=== PATIENT | female | born 1965 | race Caucasian/White ===

== ENCOUNTER 2017-08-21 21:06 | Emergency (ER) | payer MEDICAID ==
[~2017-08-21] VITALS: Ht 180.3 cm; Wt 109.0 kg
[~2017-08-21 21:06] MED LIST: ALBU18HF2 INH; ALPR-624 PO; AMLO2.5T2 PO; ATOR40TA71 PO; BACL20TA84 PO; FENO134C PO; HYDR12.5 PO; OXYC5CAP19 PO; ZETIA PO; ZOL50T PO
[2017-08-21] MEDS ORDERED: levoFLOXACIN 500mg tablet PO ONE (21:35)
[2017-08-21] MEDS ORDERED: LEVO500T2 PO (21:38)
[2017-08-21] MEDS ORDERED: TETanus/Pertussis (Acell)/Diphther VAC/PF (Tdap-Adult) 0.5ml syringe IM ONE (21:40)
[2017-08-21 22:31] VITALS: BP 138/108
== END 2017-08-21 22:10 | disposition home or self-care (01) ==
LOC: ER 21:07
DX: S91.331A Puncture wound without foreign body, right foot, initial encounter (principal); Z72.0 Tobacco use; E78.00 Pure hypercholesterolemia, unspecified; I10 Essential (primary) hypertension; G89.29 Other chronic pain; J45.909 Unspecified asthma, uncomplicated; Z90.710 Acquired absence of both cervix and uterus; Z98.890 Other specified postprocedural states; F17.210 Nicotine dependence, cigarettes, uncomplicated; Z88.0 Allergy status to penicillin; Z88.5 Allergy status to narcotic agent; Z88.2 Allergy status to sulfonamides; Z88.6 Allergy status to analgesic agent; Z88.1 Allergy status to other antibiotic agents; Z79.899 Other long term (current) drug therapy; Z56.0 Unemployment, unspecified; W45.0XXA Nail entering through skin, initial encounter; Y93.89 Activity, other specified; Y92.89 Other specified places as the place of occurrence of the external cause; Y99.8 Other external cause status
CPT/HCPCS: 90471; 90715; 99283

== ENCOUNTER 2017-09-06 00:34 | Emergency (ER) | payer MEDICAID ==
[~2017-09-06] VITALS: Ht 177.8 cm; Wt 110.7 kg
[~2017-09-06 00:34] MED LIST changes: +LEVO500T2 PO
[2017-09-06 01:54] VITALS: BP 149/103
== END 2017-09-06 01:55 | disposition home or self-care (01) ==
LOC: ER 00:34
DX: G89.29 Other chronic pain (principal); M25.552 Pain in left hip; M25.551 Pain in right hip; E78.00 Pure hypercholesterolemia, unspecified; I10 Essential (primary) hypertension; J45.909 Unspecified asthma, uncomplicated; M19.90 Unspecified osteoarthritis, unspecified site; F17.200 Nicotine dependence, unspecified, uncomplicated; Z56.0 Unemployment, unspecified; Z87.442 Personal history of urinary calculi; Z90.710 Acquired absence of both cervix and uterus; Z98.890 Other specified postprocedural states; Z88.0 Allergy status to penicillin; Z88.2 Allergy status to sulfonamides; Z88.8 Allergy status to other drugs, medicaments and biological substances; Z79.899 Other long term (current) drug therapy
CPT/HCPCS: 99281

== ENCOUNTER 2018-01-12 08:07 | Emergency (ER) | payer MEDICAID ==
[~2018-01-12] VITALS: Ht 180.3 cm; Wt 115.9 kg
[~2018-01-12 08:07] MED LIST changes: -LEVO500T2 PO
[2018-01-12 08:12] VITALS: BP 173/106
[2018-01-12] MEDS ORDERED: normal saline 1000ML IV soln IVB STA (08:23)
[2018-01-12] MEDS ORDERED: diphenhydrAMINE 50 mg/ml inj IV ONE (08:25)
[2018-01-12] MEDS ORDERED: methylPREDNISolone sod succ 125mg/2ml vial IV ONE (08:25)
[2018-01-12] MEDS ORDERED: triamcinolone acetonide 40mg/ml inj IM ONE (08:25)
[2018-01-12] MEDS ORDERED: EPIN0.3P8 IM (10:06)
== END 2018-01-12 10:17 | disposition home or self-care (01) ==
LOC: ER 08:08
DX: T78.40XA Allergy, unspecified, initial encounter (principal); I10 Essential (primary) hypertension; E78.00 Pure hypercholesterolemia, unspecified; J45.909 Unspecified asthma, uncomplicated; M19.90 Unspecified osteoarthritis, unspecified site; G89.29 Other chronic pain; M54.9 Dorsalgia, unspecified; Z90.710 Acquired absence of both cervix and uterus; Z56.0 Unemployment, unspecified; Z90.89 Acquired absence of other organs; Z88.6 Allergy status to analgesic agent; Z88.1 Allergy status to other antibiotic agents; Z88.2 Allergy status to sulfonamides; Z88.8 Allergy status to other drugs, medicaments and biological substances
CPT/HCPCS: 93005; 96372; 96374; 96375; 99284; J1200; J2930; J3301; J7030

== ENCOUNTER 2018-03-21 21:19 | Emergency (ER) | payer MEDICAID ==
[~2018-03-21] VITALS: Ht 177.8 cm; Wt 113.6 kg
[~2018-03-21 21:19] MED LIST changes: +EPIN0.3P8 IM
[2018-03-21 21:23] VITALS: BP 174/100
[2018-03-21] MEDS ORDERED: HYDR-4383 PO (22:05)
== END 2018-03-21 22:11 | disposition home or self-care (01) ==
LOC: ER 21:20
DX: S93.601A Unspecified sprain of right foot, initial encounter (principal); E78.00 Pure hypercholesterolemia, unspecified; I10 Essential (primary) hypertension; J45.909 Unspecified asthma, uncomplicated; G89.29 Other chronic pain; M19.90 Unspecified osteoarthritis, unspecified site; Z90.710 Acquired absence of both cervix and uterus; Z88.0 Allergy status to penicillin; Z88.2 Allergy status to sulfonamides; Z88.1 Allergy status to other antibiotic agents; Z88.6 Allergy status to analgesic agent; Z88.5 Allergy status to narcotic agent; Z88.8 Allergy status to other drugs, medicaments and biological substances; Z79.899 Other long term (current) drug therapy; Z56.0 Unemployment, unspecified; X50.1XXA Overexertion from prolonged static or awkward postures, initial encounter; Y93.89 Activity, other specified; Y92.89 Other specified places as the place of occurrence of the external cause; Y99.8 Other external cause status
CPT/HCPCS: 29515; 73630; 99284

== ENCOUNTER 2018-03-27 17:52 | Emergency (ER) | payer MEDICAID ==
[~2018-03-27] VITALS: Ht 177.8 cm; Wt 109.0 kg
[~2018-03-27 17:52] MED LIST changes: +HYDR-4383 PO
[2018-03-27 18:19] VITALS: BP 140/99
== END 2018-03-27 23:11 | disposition left against medical advice (07) ==
LOC: ER 17:53
DX: J00 Acute nasopharyngitis [common cold] (principal); R05 Cough; R09.81 Nasal congestion; Z53.21 Procedure and treatment not carried out due to patient leaving prior to being seen by health care provider

== ENCOUNTER 2018-12-07 20:18 | Emergency (ER) | payer MEDICAID ==
[~2018-12-07] VITALS: Ht 180.3 cm; Wt 113.0 kg
[~2018-12-07 20:18] MED LIST changes: +SERT-153 PO; -ZOL50T PO
[2018-12-07 21:23] LABS: BASOPHILS # (AUTO) 0.1 X10'3 (0-0.2); EOSINOPHILS # (AUTO) 0.2 X10'3 (0-0.9); EOSINOPHILS % (AUTO) 2.3 % (0-6); HEMOGLOBIN 13.6 g/dl (12.0-16.0); LYMPHOCYTES # (AUTO) 2.5 X10'3 (1.1-4.8); LYMPHOCYTES % (AUTO) 33.5 % (21-51); MEAN CORPUSCULAR HEMOGLOBIN 29.5 PG (27.0-31.0); MEAN CORPUSCULAR HGB CONC 33.3 g/dL (33.0-36.5); MEAN CORPUSCULAR VOLUME 88.8 FL (78-98); MEAN PLATELET VOLUME 9.2 FL (7.4-10.4); MONOCYTES # (AUTO) 0.7 X10'3 (0-0.9); MONOCYTES % (AUTO) 9.2 % (2-12); NEUTROPHILS # (AUTO) 4.1 X10'3 (1.8-7.7); PLATELET COUNT 242 X10'3 (140-440); RED BLOOD COUNT 4.62 X10'6 (4.20-5.60); RED CELL DISTRIBUTION WIDTH 13.8 % (11.5-14.5); WHITE BLOOD COUNT 7.5 X10'3 (4.5-11.0)
[2018-12-07 21:29] LABS: ALANINE AMINOTRANSFERASE 29 U/L (12-78); ALBUMIN 3.5 G/DL (3.4-5.0); ALBUMIN/GLOBULIN RATIO 0.9 (1.1-1.5); ALKALINE PHOSPHATASE 111 IU/L (46-116); ANION GAP 8 (8-16); ASPARTATE AMINO TRANSFERASE 16 U/L (10-37); BILIRUBIN,TOTAL 0.2 MG/DL (0.1-1.0); BLOOD UREA NITROGEN 17 MG/DL (7-18); BUN/CREATININE RATIO 23.9 (6.6-38.0); CALCIUM 8.9 MG/DL (8.5-10.1); CHLORIDE 106 MMOL/L (99-107); CREATININE 0.71 MG/DL (0.40-0.90); GLUCOSE 108 MG/DL (70-104); POTASSIUM 3.8 MMOL/L (3.5-5.1); SODIUM 144 MMOL/L (135-145); TOTAL CARBON DIOXIDE 29.7 MMOL/L (24-32); TOTAL PROTEIN 7.3 G/DL (6.4-8.2); eGFR 87 ML/MIN
[2018-12-07 21:34] LABS: PARTIAL THROMBOPLASTIN TIME 34 SECONDS (22-32)
[2018-12-07 22:41] VITALS: BP 145/89
== END 2018-12-07 22:43 | disposition home or self-care (01) ==
LOC: ER 20:19
DX: I87.8 Other specified disorders of veins (principal); R20.2 Paresthesia of skin; E78.00 Pure hypercholesterolemia, unspecified; I10 Essential (primary) hypertension; J45.909 Unspecified asthma, uncomplicated; G47.30 Sleep apnea, unspecified; M19.90 Unspecified osteoarthritis, unspecified site; G89.29 Other chronic pain; M79.7 Fibromyalgia; F41.9 Anxiety disorder, unspecified; F32.9 Major depressive disorder, single episode, unspecified; G35 Multiple sclerosis; Z90.710 Acquired absence of both cervix and uterus; Z98.890 Other specified postprocedural states; Z90.721 Acquired absence of ovaries, unilateral; Z56.0 Unemployment, unspecified; Z87.442 Personal history of urinary calculi; Z88.0 Allergy status to penicillin; Z88.2 Allergy status to sulfonamides; Z88.1 Allergy status to other antibiotic agents; Z88.5 Allergy status to narcotic agent; Z88.8 Allergy status to other drugs, medicaments and biological substances; Z79.899 Other long term (current) drug therapy
CPT/HCPCS: 36415; 80053; 83880; 85025; 85610; 85730; 99283

== ENCOUNTER 2019-11-23 11:59 | Emergency (ER) | payer MEDICAID ==
[~2019-11-23] VITALS: Ht 177.8 cm; Wt 112.6 kg
[2019-11-23] MEDS ORDERED: dexamethasone sod phosphate 10mg/ml inj PO STA (14:31)
[2019-11-23] MEDS ORDERED: CEPH500C5 PO (14:38)
[2019-11-23 14:51] VITALS: BP 141/97
== END 2019-11-23 14:45 | disposition home or self-care (01) ==
LOC: ER 11:59
DX: J02.9 Acute pharyngitis, unspecified (principal); G35 Multiple sclerosis; E78.00 Pure hypercholesterolemia, unspecified; I10 Essential (primary) hypertension; J45.909 Unspecified asthma, uncomplicated; G47.30 Sleep apnea, unspecified; M19.90 Unspecified osteoarthritis, unspecified site; G89.29 Other chronic pain; F41.9 Anxiety disorder, unspecified; F32.9 Major depressive disorder, single episode, unspecified; F17.210 Nicotine dependence, cigarettes, uncomplicated; Z90.710 Acquired absence of both cervix and uterus; Z98.890 Other specified postprocedural states; Z56.0 Unemployment, unspecified; Z88.0 Allergy status to penicillin; Z88.2 Allergy status to sulfonamides; Z88.1 Allergy status to other antibiotic agents; Z88.5 Allergy status to narcotic agent; Z88.8 Allergy status to other drugs, medicaments and biological substances; Z79.2 Long term (current) use of antibiotics; Z79.899 Other long term (current) drug therapy
CPT/HCPCS: 99283; J1100

== ENCOUNTER 2020-09-11 21:22 | Emergency (ER) | payer MEDICAID ==
[~2020-09-11] VITALS: Ht 177.8 cm; Wt 113.6 kg
[~2020-09-11 21:22] MED LIST changes: +CEPH-585 PO
[2020-09-11 21:44] VITALS: BP 170/99
[2020-09-11] MEDS ORDERED: erythromycin ophthalmic ointment 1gm tube LEFTEYE ONE (22:35)
[2020-09-11] MEDS ORDERED: proparacaine 0.5% ophthalmic drops 15ml EACHEYE ONE (22:35)
[2020-09-11] MEDS ORDERED: ERYT1OIN6 RIGHTEYE (23:01)
== END 2020-09-11 23:34 | disposition home or self-care (01) ==
LOC: ER 21:23
DX: H57.11 Ocular pain, right eye (principal); E78.00 Pure hypercholesterolemia, unspecified; I10 Essential (primary) hypertension; J45.909 Unspecified asthma, uncomplicated; G47.30 Sleep apnea, unspecified; M19.90 Unspecified osteoarthritis, unspecified site; G89.29 Other chronic pain; M79.7 Fibromyalgia; F41.9 Anxiety disorder, unspecified; F32.9 Major depressive disorder, single episode, unspecified; Z90.710 Acquired absence of both cervix and uterus; Z98.890 Other specified postprocedural states; Z87.442 Personal history of urinary calculi; Z56.0 Unemployment, unspecified; Z88.5 Allergy status to narcotic agent; Z88.8 Allergy status to other drugs, medicaments and biological substances; Z79.899 Other long term (current) drug therapy; Z88.0 Allergy status to penicillin; Z88.2 Allergy status to sulfonamides
CPT/HCPCS: 99283

== ENCOUNTER 2022-09-29 10:52 | Emergency (ER) | payer MEDICAID ==
[~2022-09-29] VITALS: Ht 177.8 cm; Wt 120.9 kg
[~2022-09-29 10:52] MED LIST changes: -CEPH-585 PO; -FENO134C PO; +FENO134C21 PO
[2022-09-29 10:59] VITALS: BP 158/89
[2022-09-29] MEDS ORDERED: azithromycin 250mg tablet PO ONE (12:35)
[2022-09-29] MEDS ORDERED: predniSONE 20 mg tablet PO ONE (12:35)
[2022-09-29] MEDS ORDERED: albuterol 2.5 MG/3 ML nebule NEB ONE (12:35)
[2022-09-29] MEDS ORDERED: ALBU8HFA PO (12:40)
[2022-09-29] MEDS ORDERED: MONT-40 PO (12:40)
[2022-09-29] MEDS ORDERED: PRED20TA PO (12:40)
[2022-09-29] MEDS ORDERED: AZIT-31 PO (12:40)
== END 2022-09-29 13:09 | disposition home or self-care (01) ==
LOC: ER 10:52
DX: J20.9 Acute bronchitis, unspecified (principal); I10 Essential (primary) hypertension; E78.00 Pure hypercholesterolemia, unspecified; J44.9 Chronic obstructive pulmonary disease, unspecified; M19.90 Unspecified osteoarthritis, unspecified site; F17.200 Nicotine dependence, unspecified, uncomplicated; Z88.0 Allergy status to penicillin; Z88.1 Allergy status to other antibiotic agents; Z88.2 Allergy status to sulfonamides; Z90.710 Acquired absence of both cervix and uterus; Z56.0 Unemployment, unspecified
CPT/HCPCS: 71045; 94640; 99283; J7030; J7512; 94760

== ENCOUNTER 2022-10-14 21:44 | Emergency (ER) | payer MEDICAID ==
[~2022-10-14] VITALS: Ht 177.8 cm; Wt 120.9 kg
[~2022-10-14 21:44] MED LIST changes: +ALBU8HFA PO; +MONT-40 PO
[2022-10-14 22:25] LABS: BASOPHILS % (AUTO) 0.6 % (0-1); EOSINOPHILS # (AUTO) 0.2 X10'3 (0-0.9); EOSINOPHILS % (AUTO) 3.1 % (0-6); HEMATOCRIT 41.3 % (35.0-45.0); HEMOGLOBIN 13.4 g/dl (12.0-16.0); LYMPHOCYTES # (AUTO) 2.1 X10'3 (1.1-4.8); LYMPHOCYTES % (AUTO) 29.1 % (21-51); MEAN CORPUSCULAR HGB CONC 32.5 g/dL (33.0-36.5); MEAN CORPUSCULAR VOLUME 89.1 FL (78-98); MEAN PLATELET VOLUME 8.8 FL (7.4-10.4); MONOCYTES # (AUTO) 0.8 X10'3 (0-0.9); NEUTROPHILS # (AUTO) 3.9 X10'3 (1.8-7.7); NEUTROPHILS % (AUTO) 55.2 % (42-75); PLATELET COUNT 249 X10'3 (140-440); RED BLOOD COUNT 4.63 X10'6 (4.20-5.60); WHITE BLOOD COUNT 7.1 X10'3 (4.5-11.0)
[2022-10-14 22:34] LABS: ALANINE AMINOTRANSFERASE 33 U/L (12-78); ALBUMIN 3.3 G/DL (3.4-5.0); ALBUMIN/GLOBULIN RATIO 0.9 (1.1-1.5); ALKALINE PHOSPHATASE 100 IU/L (46-116); ANION GAP 6 (8-16); ASPARTATE AMINO TRANSFERASE 18 U/L (10-37); BILIRUBIN,TOTAL 0.2 MG/DL (0.1-1.0); BLOOD UREA NITROGEN 21 MG/DL (7-18); BUN/CREATININE RATIO 32.8 (10.0-20.0); CHLORIDE 107 MMOL/L (99-107); CREATININE 0.64 MG/DL (0.40-0.90); GLUCOSE 123 MG/DL (70-104); POTASSIUM 3.8 MMOL/L (3.5-5.1); SODIUM 143 MMOL/L (135-145); TOTAL CARBON DIOXIDE 29.7 MMOL/L (24-32); eGFR > 90 ML/MIN
[2022-10-15] MEDS ORDERED: DOXYCYCLINE 100MG CAPSULE PO STA (00:18)
[2022-10-15] MEDS ORDERED: predniSONE 20 mg tablet PO ONE (00:20)
[2022-10-15] MEDS ORDERED: albuterol 2.5 MG/3 ML nebule NEB ONE (00:20)
[2022-10-15] MEDS ORDERED: PRED20TA PO (00:53)
[2022-10-15] MEDS ORDERED: DOXY-11 PO (00:53)
[2022-10-15] MEDS ORDERED: ALBU8HFA PO (00:54)
[2022-10-15 01:24] VITALS: BP 145/81
== END 2022-10-15 01:27 | disposition home or self-care (01) ==
LOC: ER 21:45
DX: J44.1 Chronic obstructive pulmonary disease with (acute) exacerbation (principal)
CPT/HCPCS: 36415; 71045; 80053; 85025; 94640; 99284; J7512; 94760

== ENCOUNTER 2023-09-07 07:35 | Emergency (ER) | payer MEDICAID ==
[~2023-09-07] VITALS: Ht 177.8 cm; Wt 118.6 kg
[~2023-09-07 07:35] MED LIST changes: -ALBU8HFA PO; -OXYC5CAP19 PO; +OXYC5CAP22 PO
[2023-09-07 07:39] VITALS: TEMP 98
[2023-09-07] MEDS ORDERED: AMLO5TAB16 PO ×2 (09:38→19:23)
[2023-09-07 10:11] VITALS: BP 175/104; PULSE 80; RESP 18; O2SAT 95
== END 2023-09-07 10:27 | disposition home or self-care (01) ==
LOC: ER 07:35
DX: T88.7XXA Unspecified adverse effect of drug or medicament, initial encounter (principal); T46.4X5A Adverse effect of angiotensin-converting-enzyme inhibitors, initial encounter; Z88.0 Allergy status to penicillin; Z88.1 Allergy status to other antibiotic agents; Z88.2 Allergy status to sulfonamides; Z79.899 Other long term (current) drug therapy; Z79.1 Long term (current) use of non-steroidal anti-inflammatories (NSAID); Y92.89 Other specified places as the place of occurrence of the external cause
CPT/HCPCS: 99283

== ENCOUNTER 2023-09-17 12:47 | Inpatient (IN) | payer MEDICAID ==
[~2023-09-17] VITALS: Ht 175.3 cm; Wt 90.0 kg
[~2023-09-17 12:47] MED LIST changes: +AMLO5TAB16 PO
[2023-09-17 14:24] LABS: BASOPHILS % (AUTO) 0.3 % (0-1); EOSINOPHILS # (AUTO) 0.2 X10'3 (0-0.9); HEMATOCRIT 44.9 % (35.0-45.0); HEMOGLOBIN 14.6 g/dl (12.0-16.0); LYMPHOCYTES # (AUTO) 1.3 X10'3 (1.1-4.8); LYMPHOCYTES % (AUTO) 19.1 % (21-51); MEAN CORPUSCULAR HEMOGLOBIN 29.4 PG (27.0-31.0); MEAN CORPUSCULAR HGB CONC 32.5 g/dL (33.0-36.5); MEAN CORPUSCULAR VOLUME 90.4 FL (78-98); MEAN PLATELET VOLUME 9.4 FL (7.4-10.4); MONOCYTES # (AUTO) 0.6 X10'3 (0-0.9); MONOCYTES % (AUTO) 8.2 % (2-12); NEUTROPHILS # (AUTO) 4.9 X10'3 (1.8-7.7); NEUTROPHILS % (AUTO) 69.4 % (42-75); PLATELET COUNT 181 X10'3 (140-440); RED BLOOD COUNT 4.97 X10'6 (4.20-5.60); RED CELL DISTRIBUTION WIDTH 13.8 % (11.5-14.5)
[2023-09-17 14:35] LABS: ALBUMIN 3.6 G/DL (3.4-5.0); ANION GAP 8 (8-16); BLOOD UREA NITROGEN 20 MG/DL (7-18); BUN/CREATININE RATIO 32.8 (10.0-20.0); CALCIUM 8.8 MG/DL (8.5-10.1); CHLORIDE 102 MMOL/L (99-107); CREATININE 0.61 MG/DL (0.40-0.90); GLUCOSE 98 MG/DL (70-104); PRO BRAIN NATRIURETIC PEPTIDE 84 PG/ML (0-125); SODIUM 137 MMOL/L (135-145); TOTAL CARBON DIOXIDE 26.7 MMOL/L (24-32); eCRCL 108 ML/MIN; eGFR > 90 ML/MIN
[2023-09-17 14:37] LABS: POTASSIUM 3.9 MMOL/L (3.5-5.1)
[2023-09-17] MEDS ORDERED: AMLO10TA13 PO (19:11)
[2023-09-17] MEDS ORDERED: potassium Cl 40MEQ/1/2NS 520ml 520 ML IV PRN (23:35)
[2023-09-17] MEDS ORDERED: acetaminophen 325mg tablet PO PRN (23:35)
[2023-09-17] MEDS ORDERED: magnesium hydroxide 30ml (MOM) UD suspension PO PRN (23:35)
[2023-09-17] MEDS ORDERED: magnesium 4gm in 100ml NS 100 ML IV PRN (23:35)
[2023-09-17] MEDS ORDERED: mag hydrox/Alum hydrox/simeth 30ml oral suspension PO PRN (23:35)
[2023-09-17] MEDS ORDERED: magnesium 2GM in 50ml NS 50 ML IV PRN (23:35)
[2023-09-17] MEDS ORDERED: potassium Cl 20 mEq SR tablet PO PRN ×2 (23:35)
[2023-09-17] MEDS ORDERED: magnesium Cl slow-release 64mg tablet PO PRN (23:35)
[2023-09-17] MEDS ORDERED: ondansetron/PF 4mg/2ml inj IV PRN (23:35)
[2023-09-17] MEDS ORDERED: aminophylline 250mg/10ml inj. IV PRN (23:45)
[2023-09-17] MEDS ORDERED: nitroGLYCERIN 0.4mg SUBLingual tab SL PRN (23:45)
[2023-09-17] MEDS ORDERED: metoprolol tartrate 1mg/ml inj IV PRN (23:45)
[2023-09-17 23:58] LABS: HEMOGLOBIN A1C 5.9 % (4.5-6.2)
[2023-09-18] VITALS (11 sets, daily range): BP systolic 130–162; BP diastolic 65–99; PULSE 69–97; RESP 13–18; TEMP 98.2–98.5; O2SAT 93–97
[2023-09-18] MEDS: aspirin 81mg, enteric-coated 1 TAB TABLET.DR PO SCH (00:45)
[2023-09-18] MEDS: atorvastatin 20mg tablet PO SCH (00:46)
[2023-09-18] MEDS ORDERED: ipratropium/albuterol 3ml nebule NEB PRN (01:55)
[2023-09-18] MEDS: K and/or MAG REPLACEMENT MC SCH (08:00)
[2023-09-18 08:23] LABS: BASOPHILS % (AUTO) 0.3 % (0-1); EOSINOPHILS # (AUTO) 0.2 X10'3 (0-0.9); HEMATOCRIT 41.9 % (35.0-45.0); LYMPHOCYTES # (AUTO) 1.4 X10'3 (1.1-4.8); LYMPHOCYTES % (AUTO) 32.9 % (21-51); MEAN CORPUSCULAR HEMOGLOBIN 29.8 PG (27.0-31.0); MEAN CORPUSCULAR HGB CONC 33.4 g/dL (33.0-36.5); MEAN CORPUSCULAR VOLUME 89.2 FL (78-98); MEAN PLATELET VOLUME 8.9 FL (7.4-10.4); MONOCYTES # (AUTO) 0.4 X10'3 (0-0.9); MONOCYTES % (AUTO) 10.4 % (2-12); NEUTROPHILS # (AUTO) 2.1 X10'3 (1.8-7.7); NEUTROPHILS % (AUTO) 51.4 % (42-75); PLATELET COUNT 180 X10'3 (140-440); RED CELL DISTRIBUTION WIDTH 13.4 % (11.5-14.5); WHITE BLOOD COUNT 4.1 X10'3 (4.5-11.0)
[2023-09-18] MEDS: enoxaparin 40mg/0.4ml syringe SUBCUT SCH (08:25)
[2023-09-18] MEDS: montelukast 10mg tablet PO SCH (08:25)
[2023-09-18] MEDS: amLODIPine 5mg tablet PO SCH (08:25)
[2023-09-18 08:46] LABS: ALBUMIN 3.4 G/DL (3.4-5.0); ANION GAP 5 (8-16); BLOOD UREA NITROGEN 19 MG/DL (7-18); BUN/CREATININE RATIO 32.8 (10.0-20.0); CALCIUM 8.6 MG/DL (8.5-10.1); CHLORIDE 104 MMOL/L (99-107); CHOL/HDL RATIO 5.4 (0.00-4.99); CHOLESTEROL 188 MG/DL (0-200); CREATININE 0.58 MG/DL (0.40-0.90); GLUCOSE 111 MG/DL (70-104); HDL CHOLESTEROL 35 MG/DL (35-60); LDL CHOLESTEROL 120 MG/DL (50-100); POTASSIUM 3.7 MMOL/L (3.5-5.1); SODIUM 140 MMOL/L (135-145); TRIGLYCERIDES 157 MG/DL (20-135); eCRCL 113 ML/MIN; eGFR > 90 ML/MIN
[2023-09-18] MEDS ORDERED: ALBU18HF2 (12:27)
[2023-09-18] MEDS: regadenoson 0.4mg/5ml syringe IV PRN (12:57)
[2023-09-18] MEDS ORDERED: ASPI-1265 PO (17:08)
[2023-09-18] MEDS ORDERED: ATOR20TA66 PO (18:15)
== END 2023-09-18 17:45 | disposition home or self-care (01) | DRG 198 ==
LOC: ER 12:49 → ED HOLD 23:41
PROVIDERS: ADMIT Surgery; ATTEND Internal Medicine
PROC: 4A02XM4 Measurement of Cardiac Total Activity, External Approach (ICD-10-PCS; principal; 2023-09-18)
PROC: 3E033HZ Introduction of Radioactive Substance into Peripheral Vein, Percutaneous Approach (ICD-10-PCS; 2023-09-18)
DX: I20.0 Unstable angina (principal); E66.9 Obesity, unspecified; E78.00 Pure hypercholesterolemia, unspecified; I10 Essential (primary) hypertension; R73.03 Prediabetes; J44.9 Chronic obstructive pulmonary disease, unspecified; G47.30 Sleep apnea, unspecified; G89.29 Other chronic pain; G35 Multiple sclerosis; M54.9 Dorsalgia, unspecified; F41.9 Anxiety disorder, unspecified; F32.A Depression, unspecified; Z90.710 Acquired absence of both cervix and uterus; Z79.82 Long term (current) use of aspirin; Z87.891 Personal history of nicotine dependence; Z88.1 Allergy status to other antibiotic agents; Z88.5 Allergy status to narcotic agent; Z88.0 Allergy status to penicillin; Z88.2 Allergy status to sulfonamides; Z88.8 Allergy status to other drugs, medicaments and biological substances; Z87.442 Personal history of urinary calculi; Z68.29 Body mass index [BMI] 29.0-29.9, adult; Z82.49 Family history of ischemic heart disease and other diseases of the circulatory system
CPT/HCPCS: 36415; 71045; 78452; 80048; 80061; 83036; 83880; 84484; 85025; 93005; 93017; 93306; 94760; 99285; A9500; G0378; J1650; J2785

== ENCOUNTER 2023-11-09 09:01 | Emergency (ER) | payer MEDICAID ==
[~2023-11-09] VITALS: Ht 177.8 cm; Wt 118.0 kg
[~2023-11-09 09:01] MED LIST changes: +ALBU18HF2; -ALBU18HF2 INH; -ALPR-624 PO; +AMLO10TA13 PO; -AMLO2.5T2 PO; -AMLO5TAB16 PO; +ASPI-1265 PO; +ATOR20TA66 PO; -ATOR40TA71 PO; -BACL20TA84 PO; -EPIN0.3P8 IM; -FENO134C21 PO; -HYDR-4383 PO; -HYDR12.5 PO; -MONT-40 PO; -OXYC5CAP22 PO; -SERT-153 PO; -ZETIA PO
[2023-11-09 12:41] VITALS: BP 127/66; PULSE 64; RESP 16; TEMP 98.1; O2SAT 94
== END 2023-11-09 12:47 | disposition home or self-care (01) ==
LOC: ER 09:02
DX: S91.112A Laceration without foreign body of left great toe without damage to nail, initial encounter (principal); E78.00 Pure hypercholesterolemia, unspecified; I10 Essential (primary) hypertension; J44.9 Chronic obstructive pulmonary disease, unspecified; M19.90 Unspecified osteoarthritis, unspecified site; Z88.0 Allergy status to penicillin; Z88.2 Allergy status to sulfonamides; Z88.1 Allergy status to other antibiotic agents; Z88.6 Allergy status to analgesic agent; Z79.899 Other long term (current) drug therapy; Z79.82 Long term (current) use of aspirin; Z90.710 Acquired absence of both cervix and uterus; X58.XXXA Exposure to other specified factors, initial encounter; Y93.89 Activity, other specified; Y92.89 Other specified places as the place of occurrence of the external cause; Y99.8 Other external cause status
CPT/HCPCS: 99281; A6449

== ENCOUNTER 2024-02-25 20:24 | Inpatient (IN) | payer MEDICAID ==
[~2024-02-25] VITALS: Ht 177.8 cm; Wt 126.4 kg
[~2024-02-25 20:24] MED LIST changes: -ASPI-1265 PO; +levoFLOXACIN-Levaquin 500mg/D5 100 ML IV ONE; +methylPREDNISolone sod succ/PF 40mg inj. IV ONE
[2024-02-25 21:02] LABS: BASOPHILS % (AUTO) 0.3 % (0-1); EOSINOPHILS # (AUTO) 0.1 X10'3 (0-0.9); EOSINOPHILS % (AUTO) 2.1 % (0-6); HEMATOCRIT 36.7 % (35.0-45.0); LYMPHOCYTES # (AUTO) 1.9 X10'3 (1.1-4.8); LYMPHOCYTES % (AUTO) 30.8 % (21-51); MEAN CORPUSCULAR HEMOGLOBIN 28.2 PG (27.0-31.0); MEAN CORPUSCULAR HGB CONC 32.6 g/dL (33.0-36.5); MEAN CORPUSCULAR VOLUME 86.4 FL (78-98); MEAN PLATELET VOLUME 8.2 FL (7.4-10.4); MONOCYTES # (AUTO) 0.5 X10'3 (0-0.9); MONOCYTES % (AUTO) 7.3 % (2-12); NEUTROPHILS # (AUTO) 3.7 X10'3 (1.8-7.7); NEUTROPHILS % (AUTO) 59.5 % (42-75); PLATELET COUNT 222 X10'3 (140-440); RED BLOOD COUNT 4.24 X10'6 (4.20-5.60); RED CELL DISTRIBUTION WIDTH 16.4 % (11.5-14.5); WHITE BLOOD COUNT 6.2 X10'3 (4.5-11.0)
[2024-02-25 21:08] VITALS: PULSE 88; RESP 16; O2SAT 94
[2024-02-25] MEDS: ipratropium/albuterol 3ml nebule NEB PRN (21:08)
[2024-02-25 21:14] LABS: ALANINE AMINOTRANSFERASE 25 U/L (12-78); ALBUMIN 3.2 G/DL (3.4-5.0); ALBUMIN/GLOBULIN RATIO 0.8 (1.1-1.5); ALKALINE PHOSPHATASE 179 IU/L (46-116); ANION GAP 1 (8-16); ASPARTATE AMINO TRANSFERASE 17 U/L (10-37); BILIRUBIN,TOTAL 0.3 MG/DL (0.1-1.0); BLOOD UREA NITROGEN 18 MG/DL (7-18); BUN/CREATININE RATIO 32.1 (10.0-20.0); CALCIUM 9.2 MG/DL (8.5-10.1); CHLORIDE 101 MMOL/L (99-107); CREATININE 0.56 MG/DL (0.40-0.90); D-DIMER 2.11 MG/L FEU (0-0.50); GLUCOSE 107 MG/DL (70-104); POTASSIUM 3.8 MMOL/L (3.5-5.1); SODIUM 137 MMOL/L (135-145); TOTAL CARBON DIOXIDE 35.4 MMOL/L (24-32); TOTAL PROTEIN 7.2 G/DL (6.4-8.2); eCRCL 121 ML/MIN; eGFR > 90 ML/MIN
[2024-02-25 21:22] VITALS: PULSE 90; RESP 18; O2SAT 97
[2024-02-25 21:23] LABS: PRO BRAIN NATRIURETIC PEPTIDE 67 PG/ML (0-125)
[2024-02-25] MEDS ORDERED: iohexol 350MG/ML 100ml bottle IV ONE (21:56)
[2024-02-25] MEDS: levoFLOXACIN-Levaquin 500mg/D5 100 ML IV ONE (22:25)
[2024-02-25] MEDS ORDERED: methylPREDNISolone sod succ/PF 40mg inj. IV ONE (22:25)
[2024-02-25] MEDS: HYDROmorphone 1 mg/ml syringe IV ONE (23:27)
[2024-02-25] MEDS: azithromycin 250mg tablet PO ONE (23:44)
[2024-02-25] MEDS: methylPREDNISolone sod succ 125mg/2ml vial IV ONE (23:45)
[2024-02-26] VITALS (9 sets, daily range): BP systolic 134–160; BP diastolic 57–85; PULSE 91–115; RESP 15–18; TEMP 96.7–98.1; O2SAT 90–99
[2024-02-26] MEDS ORDERED: POLY119P2 PO (00:28)
[2024-02-26] MEDS ORDERED: NITR0.4T51 SL (00:28)
[2024-02-26] MEDS ORDERED: GABA-530 PO (00:28)
[2024-02-26] MEDS ORDERED: ATOR40TA PO (00:28)
[2024-02-26] MEDS ORDERED: SENN8.6T19 PO (00:28)
[2024-02-26] MEDS ORDERED: OXYC-658 PO (00:28)
[2024-02-26] MEDS ORDERED: HYDR25TA5 PO (00:28)
[2024-02-26] MEDS ORDERED: ENOX100S3 SQ (00:28)
[2024-02-26] MEDS ORDERED: LIDO700A47 TOP (00:28)
[2024-02-26] MEDS ORDERED: BACL10TA2 PO (00:28)
[2024-02-26] MEDS ORDERED: magnesium sulf-water 4G/100mL 100 ML IV PRN (00:30)
[2024-02-26] MEDS ORDERED: mag hydrox/Alum hydrox/simeth 30ml oral suspension PO PRN (00:30)
[2024-02-26] MEDS ORDERED: potassium Cl 40MEQ/1/2NS 520ml 520 ML IV PRN (00:30)
[2024-02-26] MEDS ORDERED: magnesium Cl slow-release 64mg tablet PO PRN (00:30)
[2024-02-26] MEDS ORDERED: acetaminophen 325mg tablet PO PRN (00:30)
[2024-02-26] MEDS ORDERED: magnesium hydroxide 30ml (MOM) UD suspension PO PRN (00:30)
[2024-02-26] MEDS ORDERED: potassium Cl 20 mEq SR tablet PO PRN ×2 (00:30)
[2024-02-26] MEDS ORDERED: ondansetron/PF 4mg/2ml inj IV PRN (00:30)
[2024-02-26] MEDS ORDERED: magnesium sulf-water 2g/50mL 50 ML IV PRN (00:30)
[2024-02-26 00:59] LABS: HEMOGLOBIN A1C 5.7 % (4.5-6.2)
[2024-02-26 01:01] LABS: APTT 29 SECONDS (22-32); PROTHROMBIN TIME 10.8 SECONDS (9.0-12.0)
[2024-02-26] MEDS ORDERED: albuterol 2.5 MG/3 ML nebule NEB PRN (01:10)
[2024-02-26] MEDS ORDERED: ipratropium/albuterol 3ml nebule NEB PRN (01:10)
[2024-02-26 01:29] LABS: MAGNESIUM 1.7 MG/DL (1.5-2.4)
[2024-02-26] MEDS ORDERED: nitroGLYCERIN 0.4mg SUBLingual tab SL PRN (01:30)
[2024-02-26] MEDS: furosemide 10 MG/1 ML 10ml inj IV ONE (02:14)
[2024-02-26] MEDS: PERFLUTREN PROTEIN-A MICROSPHR (Optison) 0.22 MG/ML 3ML VIAL IV ONE (07:45)
[2024-02-26] MEDS: K and/or MAG REPLACEMENT MC SCH (08:00)
[2024-02-26] MEDS: polyethylene glycol 3350 17gm powd pack PO SCH (08:30)
[2024-02-26] MEDS: docusate sod 100mg capsule PO SCH (08:32)
[2024-02-26] MEDS: atorvastatin 20mg tablet PO SCH (08:32)
[2024-02-26] MEDS: baclofen 10mg tablet PO SCH (08:32)
[2024-02-26] MEDS: HYDROchlorothiazide 25mg tablet PO SCH (08:32)
[2024-02-26] MEDS: gabapentin 100mg capsule PO SCH (08:32)
[2024-02-26] MEDS: sennosides 8.6mg tablet PO SCH (08:32)
[2024-02-26] MEDS: amLODIPine 5mg tablet PO SCH (08:34)
[2024-02-26] MEDS: enoxaparin 100mg/ml syringe SQ SCH (08:40)
[2024-02-26] MEDS: LIDOcaine 5% patch TP SCH (08:40)
[2024-02-26] MEDS: methylPREDNISolone sod succ 125mg/2ml vial IV SCH (09:26)
[2024-02-26] MEDS: oxyCODONE IR 5mg (immed. release) tablet PO PRN (13:15)
[2024-02-26] MEDS: enoxaparin 40mg/0.4ml syringe SQ SCH (20:41)
[2024-02-26] MEDS: azithromycin 250mg tablet PO SCH (20:42)
[2024-02-27] VITALS (10 sets, daily range): BP systolic 138–200; BP diastolic 66–92; PULSE 81–101; RESP 16–20; TEMP 97.8–98.6; O2SAT 92–97
[2024-02-27 06:05] LABS: BASOPHILS % (AUTO) 0.4 % (0-1); EOSINOPHILS % (AUTO) 0 % (0-6); HEMATOCRIT 38.7 % (35.0-45.0); HEMOGLOBIN 12.7 g/dl (12.0-16.0); LYMPHOCYTES # (AUTO) 1.4 X10'3 (1.1-4.8); LYMPHOCYTES % (AUTO) 13.2 % (21-51); MEAN CORPUSCULAR HEMOGLOBIN 28.5 PG (27.0-31.0); MEAN CORPUSCULAR HGB CONC 32.8 g/dL (33.0-36.5); MEAN CORPUSCULAR VOLUME 86.8 FL (78-98); MEAN PLATELET VOLUME 8.9 FL (7.4-10.4); MONOCYTES # (AUTO) 0.5 X10'3 (0-0.9); MONOCYTES % (AUTO) 4.7 % (2-12); NEUTROPHILS # (AUTO) 8.7 X10'3 (1.8-7.7); NEUTROPHILS % (AUTO) 81.7 % (42-75); PLATELET COUNT 272 X10'3 (140-440); RED BLOOD COUNT 4.46 X10'6 (4.20-5.60); RED CELL DISTRIBUTION WIDTH 16.1 % (11.5-14.5); WHITE BLOOD COUNT 10.6 X10'3 (4.5-11.0)
[2024-02-27 06:24] LABS: ALANINE AMINOTRANSFERASE 24 U/L (12-78); ALBUMIN 3.2 G/DL (3.4-5.0); ALBUMIN/GLOBULIN RATIO 0.7 (1.1-1.5); ALKALINE PHOSPHATASE 189 IU/L (46-116); ANION GAP 3 (8-16); ASPARTATE AMINO TRANSFERASE 14 U/L (10-37); BILIRUBIN,TOTAL 0.1 MG/DL (0.1-1.0); BLOOD UREA NITROGEN 22 MG/DL (7-18); BUN/CREATININE RATIO 37.3 (10.0-20.0); CALCIUM 8.9 MG/DL (8.5-10.1); CHLORIDE 101 MMOL/L (99-107); CHOL/HDL RATIO 3.3 (0.00-4.99); CHOLESTEROL 198 MG/DL (0-200); CREATININE 0.59 MG/DL (0.40-0.90); GLUCOSE 119 MG/DL (70-104); HDL CHOLESTEROL 60 MG/DL (35-60); LDL CHOLESTEROL 115 MG/DL (50-100); POTASSIUM 3.9 MMOL/L (3.5-5.1); SODIUM 139 MMOL/L (135-145); TOTAL CARBON DIOXIDE 35.4 MMOL/L (24-32); TOTAL PROTEIN 7.7 G/DL (6.4-8.2); TRIGLYCERIDES 55 MG/DL (20-135); eCRCL 115 ML/MIN; eGFR > 90 ML/MIN
[2024-02-27] MEDS ORDERED: BUDE10.2 INH (17:11)
[2024-02-27] MEDS ORDERED: PRED10TA23 PO (17:11)
[2024-02-27] MEDS ORDERED: LACT1CAP76 PO (17:11)
[2024-02-27] MEDS ORDERED: CEFD300C3 PO (17:11)
[2024-02-28 05:54] LABS: BASOPHILS % (AUTO) 0.4 % (0-1); EOSINOPHILS % (AUTO) 0 % (0-6); HEMATOCRIT 39.6 % (35.0-45.0); HEMOGLOBIN 12.7 g/dl (12.0-16.0); LYMPHOCYTES # (AUTO) 1.5 X10'3 (1.1-4.8); MEAN CORPUSCULAR HEMOGLOBIN 28.2 PG (27.0-31.0); MEAN CORPUSCULAR HGB CONC 32.2 g/dL (33.0-36.5); MEAN CORPUSCULAR VOLUME 87.7 FL (78-98); MEAN PLATELET VOLUME 8.9 FL (7.4-10.4); MONOCYTES # (AUTO) 0.4 X10'3 (0-0.9); MONOCYTES % (AUTO) 3.6 % (2-12); PLATELET COUNT 290 X10'3 (140-440); RED BLOOD COUNT 4.52 X10'6 (4.20-5.60)
[2024-02-28 06:08] LABS: ALANINE AMINOTRANSFERASE 25 U/L (12-78); ALBUMIN 3.2 G/DL (3.4-5.0); ALBUMIN/GLOBULIN RATIO 0.7 (1.1-1.5); ALKALINE PHOSPHATASE 185 IU/L (46-116); ANION GAP 7 (8-16); ASPARTATE AMINO TRANSFERASE 14 U/L (10-37); BILIRUBIN,TOTAL 0.2 MG/DL (0.1-1.0); BLOOD UREA NITROGEN 28 MG/DL (7-18); BUN/CREATININE RATIO 52.8 (10.0-20.0); CHLORIDE 102 MMOL/L (99-107); CREATININE 0.53 MG/DL (0.40-0.90); GLUCOSE 134 MG/DL (70-104); POTASSIUM 3.9 MMOL/L (3.5-5.1); SODIUM 141 MMOL/L (135-145); TOTAL CARBON DIOXIDE 32.3 MMOL/L (24-32); TOTAL PROTEIN 7.5 G/DL (6.4-8.2); eCRCL 128 ML/MIN; eGFR > 90 ML/MIN
[2024-02-28 07:37] VITALS: BP_SYST 144; PULSE 81
[2024-02-28 08:00] VITALS: RESP 16
== END 2024-02-28 08:15 | disposition home or self-care (01) | DRG 140 ==
LOC: ER 20:24 → ED HOLD 23:44 → ORTHO 4S 02-26 00:45
PROVIDERS: ADMIT Internal Medicine Critical Care Medicine; ATTEND Family Medicine
PROC: B32T0ZZ Computerized Tomography (CT Scan) of Left Pulmonary Artery using High Osmolar Contrast (ICD-10-PCS; principal; 2024-02-26)
PROC: B32 Imaging, Upper Arteries, Computerized Tomography (CT Scan) (ICD-10-PCS; 2024-02-26)
PROC: B32S0ZZ Computerized Tomography (CT Scan) of Right Pulmonary Artery using High Osmolar Contrast (ICD-10-PCS; 2024-02-26)
DX: J44.1 Chronic obstructive pulmonary disease with (acute) exacerbation (principal); J96.01 Acute respiratory failure with hypoxia; I27.81 Cor pulmonale (chronic); I95.9 Hypotension, unspecified; G35 Multiple sclerosis; E78.00 Pure hypercholesterolemia, unspecified; I10 Essential (primary) hypertension; M79.7 Fibromyalgia; F32.A Depression, unspecified; F41.9 Anxiety disorder, unspecified; G47.30 Sleep apnea, unspecified; G89.29 Other chronic pain; M54.9 Dorsalgia, unspecified; Z56.0 Unemployment, unspecified; Z90.710 Acquired absence of both cervix and uterus; Z87.442 Personal history of urinary calculi; Z80.1 Family history of malignant neoplasm of trachea, bronchus and lung; Z80.41 Family history of malignant neoplasm of ovary; Z80.0 Family history of malignant neoplasm of digestive organs; Z87.891 Personal history of nicotine dependence; Z88.0 Allergy status to penicillin; Z88.2 Allergy status to sulfonamides; Z88.8 Allergy status to other drugs, medicaments and biological substances; Z88.5 Allergy status to narcotic agent
CPT/HCPCS: 36415; 71045; 71275; 80053; 80061; 83036; 83605; 83735; 83880; 84132; 84484; 85025; 85379; 85610; 85730; 87040; 87081; 93005; 93306; 93970; 94640; 94760; 96374; 99285; A4615; A6154; A6250; G0378; J1171; J1650; J1940; J2919; Q9967

== ENCOUNTER 2024-03-24 16:07 | Outpatient (CLI) | payer MEDICAID ==
[~2024-03-24] VITALS: Ht 157.5 cm; Wt 122.5 kg
[~2024-03-24 16:07] MED LIST changes: -ALBU18HF2; -AMLO10TA13 PO; -ATOR20TA66 PO; +ATOR40TA PO; +BACL10TA2 PO; +BUDE10.2 INH; +ENOX100S3 SQ; +GABA-530 PO; +HYDR25TA5 PO; +LACT1CAP76 PO; +LIDO700A47 TOP; +NITR0.4T51 SL; +OXYC-658 PO; +POLY119P2 PO; +PRED10TA23 PO; +SENN8.6T19 PO; -levoFLOXACIN-Levaquin 500mg/D5 100 ML IV ONE; -methylPREDNISolone sod succ/PF 40mg inj. IV ONE
[2024-03-24] MEDS: albuterol 2.5 MG/3 ML nebule NEB ONE (16:38)
[2024-03-24 16:39] VITALS: PULSE 93; RESP 18; O2SAT 91
[2024-03-24 16:51] VITALS: PULSE 93; RESP 18
== END 2024-03-24 23:59 | disposition home or self-care (01) ==
LOC: RT 16:07
PROVIDERS: ATTEND Physician Assistant Medical
DX: R94.2 Abnormal results of pulmonary function studies (principal); J44.1 Chronic obstructive pulmonary disease with (acute) exacerbation
CPT/HCPCS: 94060; 94760